=== PATIENT | female | born 1990 | race Two or more races ===

== ENCOUNTER → 2025-02-04 | Outpatient (CLI) | payer MEDICAID, SELFPAY ==
--- NOTE | 2025-02-04 13:30 | XR_ITS ---
Examination: Breast ultrasound, unilateral, left Date and time of exam: February 04, 2025 1403 hours INDICATIONS: Palpable mass left breast 4:00 position note is beginning 4 months ago, history injury to the breast 4 months ago Technique: Real-time weir scale ultrasonographic imaging performed left breast including all 4 quadrants as well as nipple retroareolar and axillary region. Findings: 3:00 hematoma versus cyst 16 x 14 mm 3:00 hematoma versus cyst 7 x 7 mm IMPRESSION: BI-RADS Category 3: Probably benign findings One additional 6 month follow-up left breast sonogram is needed to assess 3:00 probably hematomas
== END | disposition home or self-care (01) ==
DX: R92.8 Other abnormal and inconclusive findings on diagnostic imaging of breast (principal)
CPT/HCPCS: 76641